=== PATIENT | male | born 1960 | race Caucasian/White ===

== ENCOUNTER → 2017-03-19 | Outpatient (CLI) | payer BC ==
--- NOTE | 2017-03-19 14:57 | CARD ---
APPROVED REPORT EXAM: Two-dimensional and M-mode echocardiogram with Doppler and color Doppler. Other Information Quality : Average Rhythm : NSR INDICATION Cardiomyopathy 2D DIMENSIONS RVDd3.1 (2.9-3.5cm)Left Atrium(2D)2.6 (1.6-4.0cm) IVSd1.0 (0.7-1.1cm)Aortic Root(2D)4.0 (2.0-3.7cm) LVDd5.3 (3.9-5.9cm)LVOT Diameter2.6 (1.8-2.4cm) PWd1.0 (0.7-1.1cm)LVDs4.1 (2.5-4.0cm) FS (%) 22.6 %SV61.8 ml LVEF(%)45.0 (>50%) Aortic Valve AoV Peak Car.72.0cm/sAoV VTI17.4cm AO Peak GR.2.1mmHgLVOT Peak Car.76.6cm/s LVOT VTI 17.50cmAO Mean GR.1mmHg JANY (VMAX)5.81jl2PML (VTI)5.38cm2 Mitral Valve MV E Wacbcgdo11.3cm/sMV DECEL UWVL569ll MV A Nugnlaaj24.7cm/sMV OJJ50al E/A Ratio1.2MV A Qjkfvotb727xy MVA (PHT)3.76cm2 Tricuspid Valve TR P. Gaevzrie840va/sRAP LFKSUUXK7hsHw TR Peak Gr.85xaTbWOLJ29dpDy Pulmonary Vein S1 Ttwrjpdj31.3cm/sD2 Bgzypgzz89.0cm/s LEFT VENTRICLE The left ventricle is normal size. There is normal left ventricular wall thickness. Left ventricle sy stolic function is low normal. The Ejection Fraction is 55%. There is normal LV segmental wall motion . The left ventricular diastolic function and filling is normal for age. There is no ventricular sept al defect visualized. RIGHT VENTRICLE The right ventricle is normal size. The right ventricular systolic function is normal. ATRIA The left atrium size is normal. The right atrium size is normal. The interatrial septum is intact wit h no evidence for an atrial septal defect or patent foramen ovale as noted on 2-D or Doppler imaging. AORTIC VALVE The aortic valve is mildly calcified. The aortic valve is trileaflet. Doppler and Color Flow revealed trace aortic regurgitation. There is no significant aortic valvular stenosis. MITRAL VALVE The mitral valve is normal in structure and function. There is no mitral valve stenosis. Doppler and Color Flow revealed trace mitral regurgitation. TRICUSPID VALVE The tricuspid valve is normal in structure and function. Doppler and Color Flow revealed trace tricus pid regurgitation. The PA pressure was estimated at 22 mmHg. There is no tricuspid valve stenosis. PULMONIC VALVE The pulmonic valve is not well visualized. Doppler and Color Flow revealed no pulmonic valvular regur gitation. There is no pulmonic valvular stenosis. GREAT VESSELS The aortic root is mildly enlarged. Measuring 4.0cm. The ascending aorta is Mildly dilated.Measuring 4.2cm. Normal pulmonary venous flow (Doppler). The IVC is normal in size and collapses >50% with insp iration. PERICARDIAL EFFUSION There is no evidence of significant pericardial effusion. Critical Notification Critical Value: No <Conclusion> Left ventricle systolic function is low normal. The Ejection Fraction is 55%. There is normal LV segmental wall motion. The aortic root is mildly enlarged. Measuring 4.0cm. The ascending aorta is Mildly dilated.Measuring 4.2cm.
== END | disposition home or self-care (01) ==
LOC: ECHO 10:57
PROVIDERS: ATTEND Internal Medicine Cardiovascular Disease
DX: I25.5 Ischemic cardiomyopathy (principal); I35.1 Nonrheumatic aortic (valve) insufficiency
CPT/HCPCS: 93306

== ENCOUNTER 2019-04-28 13:20 | Emergency (ER) | payer BC, MEDICARE, OTHER ==
[~2019-04-28] VITALS: Ht 180.3 cm; Wt 61.6 kg
--- NOTE | 2019-04-28 14:04 | RAD ---
EXAM: Left shoulder, 3 views. HISTORY: Pain. COMPARISON: None. FINDINGS: 3 views left shoulder obtained. There is no fracture, dislocation or subluxation. IMPRESSION: No acute osseous finding. Electronically signed by: Faiza Thompson MD (04/28/2019 2:01 PM) [place] [id number]
[2019-04-28] MEDS ORDERED: MELO15TA23 PO (14:25)
--- NOTE | 2019-04-28 14:26 | PHYS DOC ---
Past History Past Medical History: High Cholesterol, Hypertension, DE Past Surgical History: No Surgical History Alcohol Use: Occasionally Drug Use: None Adult General Chief Complaint Chief Complaint: SHOULDER INJURY HPI HPI 58-year-old male presents with left upper arm pain. The patient has been having increased difficulty with this arm and shoulder for the last 1 month. It seems to be getting a bit worse. 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 This is part of his job because he works at [employer]. He had an injury to this shoulder 20 years ago, but had a complete recovery. He denies any recent trauma or overuse injury. He has no complaints this time. Review of Systems Review of Systems Constitutional: Denies fever or chills [] Eyes: Denies change in visual acuity, redness, or eye pain [] HENT: Denies nasal congestion or sore throat [] Respiratory: Denies cough or shortness of breath [] Cardiovascular: No additional information not addressed in HPI [] GI: Denies abdominal pain, nausea, vomiting, bloody stools or diarrhea [] : Denies dysuria or hematuria [] Musculoskeletal: Left shoulder, upper arm pain[] Integument: Denies rash or skin lesions [] Neurologic: Denies headache, focal weakness or sensory changes [] Endocrine: Denies polyuria or polydipsia [] All other systems were reviewed and found to be within normal limits, except as documented in this note. Allergies Allergies Allergies Coded Allergies Type Severity Reaction Last Updated Verified No Known Drug Allergies 04/28/19 No Physical Exam Physical Exam Constitutional: Well developed, well nourished, no acute distress, non-toxic appearance. [] HENT: Normocephalic, atraumatic, bilateral external ears normal, oropharynx moist, no oral exudates, nose normal. [] Eyes: PERRLA, EOMI, conjunctiva normal, no discharge. [] Neck: Normal range of motion, no tenderness, supple, no stridor. [] Cardiovascular:Heart rate regular rhythm, no murmur [] Lungs & Thorax: Bilateral breath sounds clear to auscultation [] Abdomen: Bowel sounds normal, soft, no tenderness, no masses, no pulsatile masses. [] Skin: Warm, dry, no erythema, no rash. [] Back: No tenderness, no CVA tenderness. [] Extremities: Tenderness along the medial edge of the bicep and the coracobrachialis, no pain with empty can, no pain with apprehension, pain with abduction.[] Neurologic: Alert and oriented X 3, normal motor function, normal sensory function, no focal deficits noted. [] Psychologic: Affect normal, judgement normal, mood normal. [] Current Patient Data Vital Signs Vital Signs Date Time Temp Pulse Resp B/P (MAP) Pulse Ox O2 Delivery O2 Flow Rate FiO2 04/28/19 13:34 63 16 97 Room Air EKG EKG [] Radiology/Procedures Radiology/Procedures [] Impressions: EXAM: Left shoulder, 3 views. HISTORY: Pain. COMPARISON: None. FINDINGS: 3 views left shoulder obtained. There is no fracture, dislocation or subluxation. IMPRESSION: No acute osseous finding. Electronically signed by: Faiza Thompson MD (04/28/2019 2:01 PM) [facility] DICTATED AND SIGNED BY: FAIZA THOMPSON MD DATE: 04/28/19 1406 CC: ENRICO ONTIVEROS MD; JHONATHAN GARCIA DO ~ Course & Med Decision Making Course & Med Decision Making Pertinent Labs and Imaging studies reviewed. (See chart for details) Based on the physical exam and history, it sounds like the patient has a possible strain versus coracobrachialis muscle or his biceps brachii. He could also have the rotator cuff tendinitis with referred pain to this location. His x-ray is unremarkable. I will prescribe meloxicam for 14 days to see if this he lps. If not, I will recommend the patient discuss physical therapy with his primary care physician. He is stable for discharge at this time. [] Dragon Disclaimer Dragon Disclaimer This electronic medical record was generated, in whole or in part, using a voice recognition dictation system. Departure Departure: Impression: Primary Impression: Left shoulder pain Disposition: HOME, SELF-CARE Condition: STABLE Referrals: ENRICO ONTIVEROS MD (PCP) Patient Instructions: Shoulder Exercises, Generic, SportsMed Scripts Meloxicam (MELOXICAM) 15 Mg Tablet 1 TAB PO DAILY for shoulder strain for 14 Days, #14 TAB 0 Refills Prov: JHONATHAN GARCIA DO 04/28/19 Problem Qualifiers Primary Impression: Left shoulder pain Chronicity: acute Qualified Codes: M25.512 - Pain in left shoulder JHONATHAN GARCIA DO Apr 28, 2019 14:26
[2019-04-28 14:42] VITALS: BP 132/85
== END 2019-04-28 14:30 | disposition home or self-care (01) ==
LOC: ER 13:20
DX: M25.512 Pain in left shoulder (principal); E78.00 Pure hypercholesterolemia, unspecified; I10 Essential (primary) hypertension; I25.2 Old myocardial infarction
CPT/HCPCS: 73030; 99284

== ENCOUNTER → 2020-12-20 | Outpatient (CLI) | payer OTHER ==
[~2020-12-20] MED LIST: MELO15TA23 PO; REGADENOSON 0.4 MG/5 ML DISP.SYRIN. IV ONE
--- NOTE | 2020-12-20 15:38 | RAD ---
MR#: [id number] Date of Study: 12/20/2020 Ordering Physician: RAFA TRAMMELL, Referring Physician: TOMER MARSH Tech: RT Mekhi (R) (N) APPROVED REPORT Test Type: Pharmacological Stress Nurse/Tech: Gareth/Renita Test Indications: CAD Cardiac History: Hypertension,1 stent Medications: See EHR Resting Heart Rate: 51 bpm Resting Blood Pressure: 185/101mmHg Pretest Chest Pain: None Pharm. Details Pharmacologic stress testing was performed using 0.4mg per 5ml of regadenoson given intravenously ove r 7-10 seconds. Stress Symptoms Dyspnea POST EXERCISE Reason for Termination: Infusion complete Max HR: 86 bpm Max Blood Pressure: 182/103mmHg Blood Pressure response to exercise: Normal blood pressure response during stress. Heart Rate response to exercise: Increased Chest Pain: No. Arrhythmia: No. ST Change: No. INTERPRETATION Stress EKG Conclusion: Baseline EKG showed sinus rhythm with old anteroseptal infarct. No ischemic c hanges at peak stress. Few PVCs without any significant arrhythmias. Imaging Protocol IMAGE PROTOCOL: Rest Tc-99m/stress Tc-99m 1 day Rest: Stress: Viability: Radiopharm.Tc99m KzcoodicmGw66s Sestamibi Yvsj77gAn 33mCi Duration 15min. 15min. Img Date 12/20/2020 12/20/2020 Inj-Img Oood45uoj. 60min. Rest Admin Site:IV - Left AntecubitalAdministrator: RT Mekhi (R)(N) Stress Admin Site: IV - Left AntecubitalAdministrator: RT Mekhi (R)(N) STRESS DATA End Diast. Vol.160.0mlAv. Heart Rate64.0bpm End Syst. Vol.65.0mlCO Index BSA0.0L/min Myocardial Yrvo185.0gEject. Feqzmlye29.0% Stress Rates Pk. Fill Rate1.87EDV/secLVtime Pk. Fill 247.65msec Pk. Empty Rate2.52ESV/secLVtime Pk. Smxbu397.82msec /3 Pk. Fill1.42EDV/sec Stress Scores Regional WT0.00Summed WT1.00 Regional WM0.00Summed WM3.00 LV Perfusion Scintigraphic images showed a small fixed defect involving the apical wall consistent with previous m yocardial infarction without any reversibility. Wall Motion Normal left ventricular systolic function with ejection fraction estimated at 59%. LV Perf. Quant 17 Seg. SSS8.00 17 Seg. SRS15.00 17 Seg. SDS0.00 Stress Defect Extent (% LAD)32.50Rest Defect Extent (% LAD)41.90Rev. Defect Extent (% LAD)0.00 Stress Defect Extent (% LCX) 0.00Rest Defect Extent (% LCX)38.80Rev. Defect Extent (% LCX)0.00 Stress Defect Extent (% RCA)0.00Rest Defect Extent (% RCA)21.10Rev. Defect Extent (% RCA)0.00 Stress Defect Extent (% ABBI)13.00Rest Defect Extent (% ABBI)37.20Rev. Defect Extent (% ABBI)0.00 Conclusion 1. Regadenoson cardioisotope stress test showed small apical wall infarct without any ischemia. 2. Normal left ventricular systolic function with ejection fraction calculated at 59%. 3. Low risk for cardiac events. Signed by : Pankaj Jimenez, Electronically Approved : 12/20/2020 15:37:54
--- NOTE | 2020-12-20 18:35 | CARD ---
MR#: [id number] Date of Study: 12/20/2020 Ordering Physician: RAFA TRAMMELL, Referring Physician: RAFA TRAMMELL, Tech: Stephany Vega, [facility] APPROVED REPORT EXAM: Two-dimensional and M-mode echocardiogram with Doppler and color Doppler. Other Information Quality : AverageHR: 61bpm INDICATION Cardiac Disease: CAD RISK FACTORS Hypertension Hyperlipidemia Smoking 2D DIMENSIONS RVDd3.1 (2.9-3.5cm)Left Atrium(2D)3.4 (1.6-4.0cm) IVSd1.0 (0.7-1.1cm)Aortic Root(2D)4.1 (2.0-3.7cm) LVDd5.4 (3.9-5.9cm)LVOT Diameter2.4 (1.8-2.4cm) PWd1.0 (0.7-1.1cm)LVDs3.7 (2.5-4.0cm) FS (%) 32.1 %SV84.8 ml LVEF(%)59.8 (>50%) Aortic Valve AoV Peak Car.118.1cm/sAoV VTI29.0cm AO Peak GR.5.6mmHgLVOT Peak Car.64.0cm/s LVOT VTI 15.65cmAO Mean GR.3mmHg JANY (VMAX)2.06im0JFN (VTI)2.36cm2 AI P 1/2 Vers486qw Mitral Valve MV E [place]80.9cm/sMV DECEL VWTS994up MV A Nfwsgteg20.9cm/sE/A Ratio1.1 Pulmonary Valve PV Peak Clbtakmu04.4cm/sPV Peak Grad.1mmHg Tricuspid Valve TR P. Qspunqug461cw/sRAP AAXZJAIE9qpYd TR Peak Gr.23buKxJXLX94brTr Pulmonary Vein S1 Rcljkrad92.1cm/sD2 Eozwnbtk62.0cm/s LEFT VENTRICLE The left ventricle is normal size. There is normal left ventricular wall thickness. The left ventricu lar systolic function is low normal. The Ejection Fraction is 50%. There is normal LV segmental wall motion. RIGHT VENTRICLE The right ventricle is normal size. There is normal right ventricular wall thickness. The right ventr icular systolic function is normal. ATRIA The left atrium size is normal. The right atrium size is normal. The interatrial septum is intact wit h no evidence for an atrial septal defect or patent foramen ovale as noted on 2-D or Doppler imaging. AORTIC VALVE The aortic valve is normal in structure and function. Doppler and Color Flow revealed trace to mild a ortic regurgitation. There is no significant aortic valvular stenosis. Calculated aortic valve area i s 2.9 cm2 with maximum pressure gradient of 6 mmHg and mean pressure gradient of 3 mmHg. MITRAL VALVE The mitral valve is normal in structure and function. There is no evidence of mitral valve prolapse. There is no mitral valve stenosis. Doppler and Color-flow revealed trace mitral regurgitation. TRICUSPID VALVE The tricuspid valve is normal in structure and function. Doppler and Color Flow revealed trace tricus pid regurgitation with an estimated 23 mmHg. There is no tricuspid valve stenosis. PULMONIC VALVE The pulmonic valve is not well visualized. Doppler and Color Flow revealed no pulmonic valvular regur gitation. GREAT VESSELS The aortic root is mildly enlarged measuring 4.1 cm. The IVC is normal in size and collapses >50% wit h inspiration. PERICARDIAL EFFUSION There is no evidence of significant pericardial effusion. Critical Notification Critical Value: No <Conclusion> The left ventricular systolic function is low normal. The Ejection Fraction is 50%. There is normal LV segmental wall motion. Trace to mild aortic regurgitation. Trace mitral regurgitation. Trace tricuspid regurgitation with an estimated 23 mmHg. There is no evidence of significant pericardial effusion. Signed by : Pankaj Jimenez, Electronically Approved : 12/20/2020 18:35:07
== END ==
LOC: NM 07:41
PROVIDERS: ATTEND Internal Medicine Cardiovascular Disease
DX: I35.1 Nonrheumatic aortic (valve) insufficiency (principal); I10 Essential (primary) hypertension; Z95.5 Presence of coronary angioplasty implant and graft
CPT/HCPCS: 78452; 93017; 93306; A9500; J2785